=== PATIENT | female | born 1935 | race Caucasian/White ===

== ENCOUNTER 2018-05-03 10:54 | Observation (INO) ==
[2018-05-03 13:44] LABS: Baso # (Auto) 0.1 th/mm3 (0.0-0.2); Baso % (Auto) 0.8 % (0.0-2.0); Eos % (Auto) 0.5 % (0.0-4.0); Hemoglobin 12.9 gm/dL (11.6-15.3); Lymph # (Auto) 1.6 th/mm3 (1.0-4.8); Lymph % (Auto) 19.2 % (9.0-44.0); Mean Corpuscular HGB Conc 33.1 % (32.0-36.0); Mean Corpuscular Hemoglobin 29.3 pg (27.0-34.0); Mean Corpuscular Volume 88.3 fL (80.0-100.0); Mean Platelet Volume 8.7 fL (7.0-11.0); Mono # (Auto) 0.8 th/mm3 (0.0-0.9); Mono % (Auto) 9.7 % (0.0-8.0); Neut # (Auto) 5.8 th/mm3 (1.8-7.7); Neut % (Auto) 69.8 % (16.0-70.0); Platelet Count 202 th/mm3 (150-450); Red Blood Count 4.41 mil/mm3 (4.00-5.30); White Blood Count 8.3 th/mm3 (4.0-11.0)
[2018-05-03 13:49] LABS: Bilirubin,Urine Negative (Negative); Clarity,Urine Clear (Clear); Color,Urine Yellow (Yellw/Straw); Glucose,Urine (UA) Negative (Negative); Leukocyte Esterase,Urine Negative (Negative); Nitrite,Urine Negative (Negative); Urobilinogen,Urine 0.2 mg/dL (Less than 2)
--- NOTE | 2018-05-03 13:49 | ED ---
HPI General Chief complaint: Back Pain/Injury Stated complaint: Back / R Shoulder Pain xFriday PM Time Seen by Provider: 05/03/18 13:26 History of Present Illness HPI narrative: This is a 83-year-old female with history of hyperthyroidism, hyperlipidemia, presents today with complain of intermittent pain in her back between her shoulder blades. Patient also reports intermittent discomfort in her right upper abdominal area. She states it is worse with food. She reports its accompanied by frequent belching and passing gas. She denies any nausea or vomiting. She denies any diarrhea. She does still have her gallbladder. She denies any left-sided chest pain, chest pressure. She denies any dyspnea on exertion. There are no other complaints at time of examination. Related Data Home Medications Medication Instructions Recorded Confirmed calcium carbonate [Calcium 600] 1,200 mg PO DAILY 05/03/18 05/03/18 levothyroxine [Levoxyl] 100 mcg PO DAILY 05/03/18 05/03/18 lutein 20 mg PO DAILY 05/03/18 05/03/18 lysine [L-Lysine] 500 mg PO DAILY 05/03/18 05/03/18 pravastatin 20 mg PO DAILY 05/03/18 05/03/18 Allergies Allergy/AdvReac Type Severity Reaction Status Date / Time Sulfa (Sulfonamide Allergy Severe Anaphylaxis Verified 05/03/18 11:16 Antibiotics) Influenza Virus Vaccines AdvReac Severe Fever Verified 05/03/18 13:08 lactose intolerant Allergy Gastrointestinal Uncoded 05/03/18 13:18 Upset Review of Systems Constitutional Denies chills and Denies fever(s) Eyes Reports system reviewed and no additional complaints, except [facility] ENT Reports system reviewed and no additional complaints, except as [facility] Cardiovascular Denies chest pain, Denies syncope, Denies edema and Reports other (Pain between her shoulder blades.) Respiratory Denies chest congestion, Denies cough and Denies dyspnea Gastrointestinal Reports abdominal pain (Right upper), Reports belching, Denies nausea and Denies vomiting Genitourinary Reports system reviewed and no additional complaints, except as [facility] Musculoskeletal Reports system reviewed and no additional complaints, except as [facility] Neurologic Reports system reviewed and no additional complaints, except as [facility] Medical History Medical History History of hysterectomy (Acute) Surgical History Surgical History H/O varicose vein stripping (Acute) History of cataract surgery (Acute) History of knee surgery (Acute) Social History Social History Substance History: No History of Abuse Smoking Status: Former smoker How Often Do You Have a Drink Containing Alcohol: Monthly or less Recent Travel in [facility] within the Last 8 Weeks: No Recent Out of Country Travel within the Last 8 Weeks: No Immunization History Tetanus Immunization: <5 Years Hx Influenza Vaccine This Season: Yes Exam Narrative Exam Narrative: GENERAL: Well developed well-nourished female in no acute respiratory distress. SKIN: Focused skin assessment warm/dry. HEAD: Atraumatic. Normocephalic. EYES: No scleral icterus. No injection or drainage. ENT: No nasal bleeding or discharge. Mucous membranes pink and moist. NECK: Trachea midline. Supple. CARDIOVASCULAR: Regular rate and rhythm. No murmur appreciated. RESPIRATORY: No accessory muscle use. Clear to auscultation. Breath sounds equal bilaterally. GASTROINTESTINAL: Abdomen soft, nondistended. There is no tenderness to palpation. There is no Craig sign. MUSCULOSKELETAL: No obvious deformities. No clubbing. No cyanosis. No edema. NEUROLOGICAL: Awake and alert. No obvious cranial nerve deficits. Motor grossly within normal limits. Normal speech. Course Initial Documented Vital Signs Temperature 98.6 F 05/03/18 11:07 Pulse Rate 101 H 05/03/18 11:07 Respiratory Rate 16 05/03/18 11:07 Blood Pressure 156/76 H 05/03/18 11:07 Pulse Oximetry 98 05/03/18 11:07 Last Documented Vital Signs Temperature 98.6 F 05/03/18 11:07 Pulse Rate 84 05/03/18 16:33 Respiratory Rate 18 05/03/18 16:33 Blood Pressure 144/73 H 05/03/18 16:33 Pulse Oximetry 95 05/03/18 16:33 Medical Decision Making [facility] Narrative Medical decision making narrative: This 83-year-old female presents with intermittent right upper quadrant abdominal pain with pain rating down behind her shoulder blades. She was sent here at the request of her primary doctor to rule out cardiac issues. Patient's EKG and cardiac enzymes are within normal limits. Patient has pain consistent with cholecystitis or gallbladder pain. Gallbladder enzymes are within normal limits. CT scan was ordered to rule out gallbladder etiology. There is no evidence of acute cholecystitis or pericholecystic fluid. The rest of her abdominal scan is negative. Given her history and the presentation she will be admitted under observation. She will get a HIDA scan in the morning with a GI consult. Case was discussed with Dr. Harpal Broderick who is agreeable. Medical Screen Exam Complete: Yes Emergency Medical Condition: Yes Differential Diagnosis Differential Diagnosis: Peptic ulcer disease versus cholelithiasis versus atypical chest pain Lab Data Result diagrams: 05/03/18 13:35 05/03/18 13:35 Lab Results 05/03/18 05/03/18 05/03/18 Range/Units 13:35 13:35 13:35 CBC w Diff Auto diff final WBC 8.3 (4.0-11.0) th/mm3 RBC 4.41 (4.00-5.30) mil/mm3 Hgb 12.9 (11.6-15.3) gm/dL Hct 39.0 (35.0-46.0) % MCV 88.3 (80.0-100.0) fL MCH 29.3 (27.0-34.0) pg MCHC 33.1 (32.0-36.0) % RDW 12.0 (11.6-17.2) % Plt Count 202 (150-450) th/mm3 MPV 8.7 (7.0-11.0) fL Neut % (Auto) 69.8 (16.0-70.0) % Lymph % (Auto) 19.2 (9.0-44.0) % [place] % (Auto) 9.7 H (0.0-8.0) % Eos % (Auto) 0.5 (0.0-4.0) % Baso % (Auto) 0.8 (0.0-2.0) % Neut # (Auto) 5.8 (1.8-7.7) th/mm3 Lymph # (Auto) 1.6 (1.0-4.8) th/mm3 [place] # (Auto) 0.8 (0.0-0.9) th/mm3 Eos # (Auto) 0.0 (0.0-0.4) th/mm3 Baso # (Auto) 0.1 (0.0-0.2) th/mm3 WBC Differential . Differential Comment . Sodium 143 (136-145) meq/L Potassium 3.9 (3.5-5.1) meq/L Chloride 105 (98-107) meq/L Carbon Dioxide 28.3 (21.0-32.0) meq/L Anion Gap 10 (5-15) meq/L BUN 14 (7-18) mg/dL Creatinine 0.79 (0.50-1.00) mg/dL Estimated GFR 70 L (>89) mL/min Random Glucose 107 H (74-106) mg/dL Calcium 9.0 (8.5-10.1) mg/dL Total Bilirubin 0.4 (0.2-1.0) mg/dL AST 16 (15-37) U/L ALT 19 (10-53) U/L Alkaline Phosphatase 97 (45-117) U/L Total Creatine Kinase 53 (26-192) U/L Troponin I Less than 0.02 L (0.02-0.05) ng/mL Total Protein 7.8 (6.4-8.2) g/dL Albumin 3.9 (3.4-5.0) g/dL Lipase 106 (73-393) U/L Ur Collection Type Clean catch Urine Color Yellow (Yellw/Straw) Urine Clarity Clear (Clear) Urine pH 6.0 (5.0-8.5) Ur Specific [place] 1.010 (1.002-1.035) Urine Protein Negative (Neg-Trace) mg/dL Urine Glucose (UA) Negative (Negative) mg/dL Urine Ketones 15 H (Negative) mg/dL Urine Occult Blood Small H (Negative) Urine Nitrate Negative (Negative) Urine Bilirubin Negative (Negative) Urine Urobilinogen 0.2 (Less than 2) mg/dL Ur Leukocyte Esterase Negative (Negative) Urine RBC 0-3 (0-3) /hpf Ur Squamous Epith Cells 0-5 (0-5) /hpf Urine Mucus Moderate H (Occasional) /lpf Micro UA Comment Culture not ind Ur Microscopic Review Microscopic reviewed Urine Culture Comments Culture not ind Urine Collection Time 1335 hours Imaging Data Radiologist's impression: Chest X-Ray 05/03/18 13:26 CONCLUSION: No acute cardiopulmonary disease. Abdomen/Pelvis CT 05/03/18 14:15 CONCLUSION: 1. No acute abnormality to explain the patient's pain. Discharge Plan Discharge Disposition Patient Disposition: 30 Still Patient Discharge Details Diagnosis: Abdominal pain, Pain in scapula, Dyslipidemia Physicians Team ED Provider: Reuben Arellano Primary Care Provider: Darshan Conner Rxs /Orders / Referrals /Forms Prescriptions: No Action levothyroxine [Levoxyl] 100 mcg Tablet 100 mcg PO DAILY RF: 0 calcium carbonate [Calcium 600] 600 mg calcium (1,500 mg) Tablet 1,200 mg PO DAILY RF: 0 pravastatin 20 mg Tablet 20 mg PO DAILY RF: 0 lysine [L-Lysine] 500 mg Tablet 500 mg PO DAILY RF: 0 lutein 20 mg Tablet 20 mg PO DAILY RF: 0 Discharge Interventions Interventions: Vital Signs Last Done: 05/03/18 16:33 Status ED Status: With Doctor
[2018-05-03 13:56] LABS: Chloride 105 meq/L (98-107); Potassium 3.9 meq/L (3.5-5.1); Sodium 143 meq/L (136-145)
[2018-05-03 13:57] LABS: Collection Time,Urine 1335 hours
[2018-05-03 13:58] LABS: Mucus,Urine Moderate /lpf (Occasional); RBC,Urine 0-3 /hpf (0-3); Squamous Epithelial Cell,Urine 0-5 /hpf (0-5)
[2018-05-03 14:00] LABS: Albumin 3.9 g/dL (3.4-5.0); Anion Gap 10 meq/L (5-15); Blood Urea Nitrogen 14 mg/dL (7-18); Carbon Dioxide 28.3 meq/L (21.0-32.0); Glucose,Random 107 mg/dL (74-106); Lipase 106 U/L (73-393)
[2018-05-03 14:03] LABS: Alanine Aminotransferase 19 U/L (10-53); Aspartate Aminotransferase 16 U/L (15-37); Glomerular Filtration Rate 70 mL/min (>89)
[2018-05-03 14:05] LABS: Total Protein 7.8 g/dL (6.4-8.2)
[2018-05-03 14:06] LABS: Alkaline Phosphatase 97 U/L (45-117)
[2018-05-03 14:10] LABS: Creatine Kinase 53 U/L (26-192)
--- NOTE | 2018-05-03 14:20 | XR ---
EXAM DATE: 05/03/2018 1:26 PM EDT AGE/SEX: 83 years / Female INDICATIONS: Chest Pain CLINICAL DATA: This is the patient's initial encounter. Patient reports that signs and symptoms have been present for 1 day and indicates a pain score of 0/10. MEDICAL/SURGICAL HISTORY: . Hypotension None. COMPARISON: [facility], XR CHEST PA AND LAT, 08/25/2016. . FINDINGS: A single AP view of the chest demonstrates hyperinflation of lungs. No infiltrate or effusion. Elevat ion left hemidiaphragm. Chronic interstitial changes noted. Most pronounced within the apices. These are stable. A degenerative and scoliotic spine. Heart is normal in size. CONCLUSION: No acute cardiopulmonary disease. Electronically signed by: John Corbett MD 05/03/2018 2:18 PM EDT
[2018-05-03] MEDS ORDERED: Acetaminophen 325 MG Tablet PO ONE (14:21)
[2018-05-03] MEDS ORDERED: Diatrizoate Meglum/Diatrizoate Sod Liq 9 ML UDC ONE (14:29)
[2018-05-03 14:39] VITALS: O2SAT 95
--- NOTE | 2018-05-03 16:11 | CT ---
EXAM DATE: 05/03/2018 2:21 PM EDT AGE/SEX: 83 years / Female INDICATIONS: Right upper quadrant and back pain radiating to shoulder with improvement after belchi ng, but then returns. CLINICAL DATA: This is the patient's initial encounter. Patient reports that signs and symptoms have been present for 2 days and indicates a pain score of 4/10. MEDICAL/SURGICAL HISTORY: None. Hysterectomy. ORAL CONTRAST: Prescribed oral contrast ingested. RADIATION DOSE: 14.21 CTDI (mGy) COMPARISON: No prior exams available for comparison. TECHNIQUE: Multiple contiguous axial images were obtained through the abdomen and pelvis following b olus infusion of 95 ml Omnipaque 350 (iohexol) nonionic water-soluble contrast as a single exam dos e. Prescribed oral contrast ingested. Using automated exposure control and adjustment of the mA and/ or kV according to patient size, radiation dose was kept as low as reasonably achievable to obtain op timal diagnostic quality images. DICOM format image data is available electronically for review and comparison. FINDINGS: Lower Lungs: The visualized lower lungs are clear. Liver: The liver has a homogeneous density without space-occupying lesion. There is no dilation of th e biliary tree. Gallbladder is unremarkable. Spleen: Homogeneous density without enlargement. Pancreas: Unremarkable without mass or calcification. Kidneys: Normal in size and shape. No evidence of mass or hydronephrosis. Adrenal Glands: Unremarkable. Aorta: The aorta and proximal iliac vessels are grossly unremarkable without aneurysmal dilation. Bowel/Mesentery: The bowel loops are grossly unremarkable. The cecum and sigmoid colon have a normal configuration. Appendix is normal by CT criteria. Abdominal Wall: Intact. Retroperitoneum: No evidence of adenopathy in the retrocrural, para-aortic, or deep pelvic regions. Bladder: Contours are smooth. Reproductive Organs: No abnormal masses or calcifications seen. Inguinal: The inguinal region is unremarkable without evidence of adenopathy. Bony Structures: Unremarkable. CONCLUSION: 1. No acute abnormality to explain the patient's pain. Electronically signed by: John Corbett MD 05/03/2018 4:10 PM EDT
[2018-05-03] MEDS ORDERED: Morphine Inj 4 MG/ML Vial IV.PUSH PRN ×2 (17:11)
[2018-05-03] MEDS: Sod Chloride 0.9% Inj 1,000 ML IV.CONT SCH (17:35)
[2018-05-03 19:39] LABS: Creatine Kinase 50 U/L (26-192)
[2018-05-04 03:24] LABS: Chloride 109 meq/L (98-107); Sodium 143 meq/L (136-145)
[2018-05-04 03:27] LABS: Calcium 8.7 mg/dL (8.5-10.1)
[2018-05-04] MEDS: Sod Chloride 0.9% Inj 1,000 ML IV.CONT SCH (03:27)
[2018-05-04 03:42] LABS: Alanine Aminotransferase 14 U/L (10-53); Albumin 3.2 g/dL (3.4-5.0); Alkaline Phosphatase 85 U/L (45-117); Anion Gap 8 meq/L (5-15); Aspartate Aminotransferase 10 U/L (15-37); Blood Urea Nitrogen 9 mg/dL (7-18); Carbon Dioxide 25.7 meq/L (21.0-32.0); Glomerular Filtration Rate 83 mL/min (>89); Glucose,Random 88 mg/dL (74-106); Total Protein 6.7 g/dL (6.4-8.2)
[2018-05-04 03:43] LABS: Creatine Kinase 49 U/L (26-192)
[2018-05-04 07:16] LABS: Baso % (Auto) 0.9 % (0.0-2.0); Eos # (Auto) 0.1 th/mm3 (0.0-0.4); Eos % (Auto) 2.5 % (0.0-4.0); Hemoglobin 11.1 gm/dL (11.6-15.3); Lymph # (Auto) 2.1 th/mm3 (1.0-4.8); Lymph % (Auto) 39.8 % (9.0-44.0); Mean Corpuscular HGB Conc 32.5 % (32.0-36.0); Mean Corpuscular Hemoglobin 29.1 pg (27.0-34.0); Mean Corpuscular Volume 89.6 fL (80.0-100.0); Mean Platelet Volume 9.3 fL (7.0-11.0); Mono # (Auto) 0.7 th/mm3 (0.0-0.9); Neut # (Auto) 2.3 th/mm3 (1.8-7.7); Neut % (Auto) 42.8 % (16.0-70.0); Platelet Count 168 th/mm3 (150-450); Red Blood Count 3.79 mil/mm3 (4.00-5.30); Red Cell Distribution Width 12.2 % (11.6-17.2); White Blood Count 5.2 th/mm3 (4.0-11.0)
--- NOTE | 2018-05-04 07:58 | P.HP ---
History of Present Illness Primary Care Physician: Darshan Conner MD Chief Complaint: neck and shoulder pain History of Present Illness: This is a pleasant 83-year-old female patient with a known medical history of hypothyroidism hyperlipidemia who presented to the ED with complaints of intermittent neck and back pain especially between her shoulder blades. Patient states that on Thursday night before going to bed she developed a neck pain that radiated to her right rib cage area that was dull and muscle aching in nature. She states that she took an Advil and use the heating pad which did relieve the pain although the pain was intermittent throughout the weekend. Patient states that she denies any abdominal pain although the pain did worsen when she ate. The pain is characterized as dull in nature, lasts a couple hours is relieved with Advil. It should be noted that patient also took her temperature on Thursday night and was reportedly 100.3. She denies any changes in her bowel movements, denies any blood or black stools. She denies any diarrhea. Patient follows closely with her primary care doctor whom she called for said complaints and was advised to come to the ER. She last saw her PCP 3 weeks ago with no changes to her medicines. Patient does admit to undergoing a colonoscopy roughly 8 years ago which was reportedly negative. Has never underwent an EGD. - Diagnosis (1) Chronic neck and back pain Review of Systems All other systems reviewed negative except as stated in HPI PMFSH - History History Provided By: Patient - Medical History Medical History: Medical History (Last Reviewed 05/04/18 @ 08:37 by Shabana Manrique) History of hysterectomy - Surgical History Surgical History: Surgical History (Last Reviewed 05/04/18 @ 08:37 by Shabana Manrique) H/O varicose vein stripping History of cataract surgery History of knee surgery - Family History Family History: Family History (Last Updated 05/04/18 @ 08:37 by Shabana Manrique) Other No pertinent family history - Tobacco History Second Hand Smoke Exposure: No Smoking Status: Never smoker - Alcohol History How Often Do You Have a Drink Containing Alcohol: Never - Substance Use History Substance History: No History of Abuse - Travel History Recent Travel in the [place] Within the Last 8 Weeks: No Recent Travel Out of the Country Within the Last 8 Weeks: No - Immunization History Tetanus Immunization: <5 Years Hx Influenza Vaccine This Season: Yes Medications and Allergies Active Medications: Active Medications Al Hydroxide/Mg Hydroxide (Milk Of Callie Baum) 30 ml PO Q12H PRN PRN Reason: Mild Constipation Sodium Chloride (Ns Inj) 1,000 mls @ 100 mls/hr IV.CONT .Q10H LORY Last Admin: 05/04/18 03:27 Dose: 100 mls/hr Sodium Chloride (Ns Flush) 2 ml IV.FLUSH PRN PRN PRN Reason: FLUSH AFTER USING IV ACCESS Tramadol HCl (Ultram) 50 mg PO Q6H PRN PRN Reason: Pain 3 to 10 Last Admin: 05/03/18 20:56 Dose: 50 mg Allergies Allergy/AdvReac Type Severity Reaction Status Date / Time Sulfa (Sulfonamide Allergy Severe Anaphylaxis Verified 05/03/18 11:16 Antibiotics) Influenza Virus Vaccines AdvReac Severe Fever Verified 05/03/18 13:08 lactose intolerant Allergy Gastrointestinal Uncoded 05/03/18 13:18 Upset Home Medications Medication Instructions Recorded Confirmed Type calcium carbonate [Calcium 600] 1,200 mg PO DAILY 05/03/18 05/03/18 History levothyroxine [Levoxyl] 100 mcg PO DAILY 05/03/18 05/03/18 History lutein 20 mg PO DAILY 05/03/18 05/03/18 History lysine [L-Lysine] 500 mg PO DAILY 05/03/18 05/03/18 History pravastatin 20 mg PO DAILY 05/03/18 05/03/18 History Exam Vital signs: Vital Signs 05/03/18 11:07 05/03/18 13:11 05/03/18 14:38 Temperature 98.6 F Pulse Rate 101 H 103 H 93 H Respiratory Rate 16 16 18 Blood Pressure 156/76 H 177/88 H 126/78 Pulse Oximetry 98 98 95 05/03/18 16:33 05/03/18 20:00 05/04/18 00:00 Temperature 97.6 F 97.4 F L Pulse Rate 84 81 70 Respiratory Rate 18 18 18 Blood Pressure 144/73 H 132/61 131/64 Pulse Oximetry 95 95 95 Intake & Output 05/03/18 05/04/18 05/04/18 18:59 06:59 18:59 Intake Total 100 / 100 1480 / 1480 Balance 100 / 100 1480 / 1480 Weight 81.6 kg 81.6 kg Intake: IV 100 / 100 1000 / 1000 NS Inj 1,000 ML @ 100 mls/hr IV 100 / 100 1000 / 1000 .CONT .Q10H LORY Rx#:[id number] Oral 480 / 480 Other: # Voids 1 Weight On Admission 81.6 kg Narrative: GENERAL: Well-developed, well-nourished elderly female patient in [facility]. SKIN: Warm and dry. No rash. HEAD: Normocephalic. Atraumatic. EYES: Pupils equal and round. No scleral icterus. No injection or drainage. ENT: No nasal bleeding or discharge. Mucous membranes pink and moist. NECK: Supple. Trachea midline. No pain to palpation. CARDIOVASCULAR: Regular rate and rhythm. S1, S2 noted. No murmur appreciated. RESPIRATORY: No accessory muscle use. Clear to auscultation. Breath sounds equal bilaterally. GASTROINTESTINAL: Abdomen soft, non-tender, nondistended. Normoactive bowel sounds x4. MUSCULOSKELETAL: No obvious deformities. Extremities without clubbing, cyanosis , or edema. NEUROLOGICAL: Awake and alert. No obvious cranial nerve deficits. Motor grossly within normal limits. 5/5 muscle strength in bilateral upper and lower extremities. Normal speech. PSYCHIATRIC: Appropriate mood and affect; insight and judgment normal. Results - Labs CBC & Chem 7: 05/04/18 05:12 05/04/18 03:00 Labs: Laboratory Results - last 24 hr 05/03/18 05/03/18 05/03/18 13:35 13:35 13:35 CBC w Diff Auto diff final WBC 8.3 RBC 4.41 Hgb 12.9 Hct 39.0 MCV 88.3 MCH 29.3 MCHC 33.1 RDW 12.0 Plt Count 202 MPV 8.7 Neut % (Auto) 69.8 Lymph % (Auto) 19.2 [place] % (Auto) 9.7 H Eos % (Auto) 0.5 Baso % (Auto) 0.8 Neut # (Auto) 5.8 Lymph # (Auto) 1.6 [place] # (Auto) 0.8 Eos # (Auto) 0.0 Baso # (Auto) 0.1 WBC Differential . Differential Comment . Sodium 143 Potassium 3.9 Chloride 105 Carbon Dioxide 28.3 Anion Gap 10 BUN 14 Creatinine 0.79 Estimated GFR 70 L Random Glucose 107 H Calcium 9.0 Total Bilirubin 0.4 AST 16 ALT 19 Alkaline Phosphatase 97 Total Creatine Kinase 53 Troponin I Less than 0.02 L Total Protein 7.8 Albumin 3.9 Lipase 106 Ur Collection Type Clean catch Urine Color Yellow Urine Clarity Clear Urine pH 6.0 Ur Specific [place] 1.010 Urine Protein Negative Urine Glucose (UA) Negative Urine Ketones 15 H Urine Occult Blood Small H Urine Nitrate Negative Urine Bilirubin Negative Urine Urobilinogen 0.2 Ur Leukocyte Esterase Negative Urine RBC 0-3 Ur Squamous Epith Cells 0-5 Urine Mucus Moderate H Micro UA Comment Culture not ind Ur Microscopic Review Microscopic reviewed Urine Culture Comments Culture not ind Urine Collection Time 1335 05/03/18 05/04/18 05/04/18 19:10 03:00 05:12 CBC w Diff Auto diff final WBC 5.2 RBC 3.79 L Hgb 11.1 L Hct 34.0 L MCV 89.6 MCH 29.1 MCHC 32.5 RDW 12.2 Plt Count 168 MPV 9.3 Neut % (Auto) 42.8 Lymph % (Auto) 39.8 [place] % (Auto) 14.0 H Eos % (Auto) 2.5 Baso % (Auto) 0.9 Neut # (Auto) 2.3 Lymph # (Auto) 2.1 [place] # (Auto) 0.7 Eos # (Auto) 0.1 Baso # (Auto) 0.0 WBC Differential . Differential Comment . Sodium 143 Potassium 4.0 Chloride 109 H Carbon Dioxide 25.7 Anion Gap 8 BUN 9 Creatinine 0.68 Estimated GFR 83 L Random Glucose 88 Calcium 8.7 Total Bilirubin 0.5 AST 10 L ALT 14 Alkaline Phosphatase 85 Total Creatine Kinase 50 49 Troponin I Less than 0.02 L Less than 0.02 L Total Protein 6.7 D Albumin 3.2 L D Lipase Ur Collection Type Urine Color Urine Clarity Urine pH Ur Specific [place] Urine Protein Urine Glucose (UA) Urine Ketones Urine Occult Blood Urine Nitrate Urine Bilirubin Urine Urobilinogen Ur Leukocyte Esterase Urine RBC Ur Squamous Epith Cells Urine Mucus Micro UA Comment Ur Microscopic Review Urine Culture Comments Urine Collection Time - Imaging Impressions Chest X-Ray 05/03/18 13:26 CONCLUSION: No acute cardiopulmonary disease. Abdomen/Pelvis CT 05/03/18 14:15 CONCLUSION: 1. No acute abnormality to explain the patient's pain. Caprini VTE Risk Assessment Caprini VTE Risk Assessment: Moderate/High Risk (score >= 2) Caprini Risk Assessment Model: Point Value = 1 Point Value = 2 Point Value = 3 Point Value = 5 Age 41-60 Minor surgery BMI > 25 kg/m2 Swollen legs Varicose veins or History of unexplained or recurrent spontaneous Oral contraceptives or hormone replacement Sepsis (< 1 month) Serious lung disease, including pneumonia (< 1 month) Abnormal pulmonary function Acute myocardial infarction Congestive heart failure (< 1 month) History of inflammatory bowel disease Medical patient at bed rest Age 61-74 Arthroscopic surgery Major open surgery (> 45 min) Laparoscopic surgery (> 45 min) Malignancy Confined to bed (> 72 hours) Immobilizing plaster cast Central venous access Age >= 75 History of VTE Family history of VTE Factor V Leiden Prothrombin 51845C Lupus anticoagulant Anticardiolipin antibodies Elevated serum homocysteine Heparin-induced thrombocytopenia Other congenital or acquired thrombophilia Stroke (< 1 month) Elective arthroplasty Hip, pelvis, or leg fracture Acute spinal cord injury (< 1 month) Prophylaxis Regimen: Total Risk Factor Score Risk Level Prophylaxis Regimen 0-1 Low Early ambulation 2 Moderate Order ONE of the following: *Sequential Compression Device (SCD) *Heparin 5000 units SQ BID 3-4 Higher Order ONE of the following medications: *Heparin 5000 units SQ TID *Enoxaparin/Lovenox 40 mg SQ daily (WT < 150 kg, CrCl > 30 mL/min) *Enoxaparin/Lovenox 30 mg SQ daily (WT < 150 kg, CrCl > 10-29 mL/min) *Enoxaparin/Lovenox 30 mg SQ BID (WT < 150 kg, CrCl > 30 mL/min) AND/OR *Sequential Compression Device (SCD) 5 or more Highest Order ONE of the following medications: *Heparin 5000 units SQ TID (Preferred with Epidurals) *Enoxaparin/Lovenox 40 mg SQ daily (WT < 150 kg, CrCl > 30 mL/min) *Enoxaparin/Lovenox 30 mg SQ daily (WT < 150 kg, CrCl > 10-29 mL/min) *Enoxaparin/Lovenox 30 mg SQ BID (WT < 150 kg, CrCl > 30 mL/min) AND *Sequential Compression Device (SCD) Assessment and Plan - Assessment (1) Chronic neck and back pain Code(s): M54.2 - Cervicalgia; M54.9 - Dorsalgia, unspecified; G89.29 - Other chronic pain Status: Acute - Plan This is an 83-year-old female patient with Neck and back discomfort -Patient presents with 3-day history of neck and back pain especially between shoulder blades. -Ultram as needed for pain per pain scale. -Abdominal CT has been reviewed, no significant findings to explain the pain. A HIDA scan has been ordered and pending today. Will follow. -Keep n.p.o. for now. Ensure hydration, continue IV fluids. -Antiemetics as needed. -Supportive care. Hypothyroidism, chronic: Will continue home medications. GI Prophylaxis: Protonix. DVT prophylaxis: SCDs. Heparin.
[2018-05-04] MEDS ORDERED: Aluminum/Magnesium/Simethacone Susp 30 ML UDC PO PRN (08:44)
[2018-05-04] MEDS ORDERED: Heparin - SQ 10,000 UNITS/ML Vial SQ SCH (09:00)
[2018-05-04] MEDS ORDERED: Pantoprazole Inj 40 MG Vial IV.PUSH SCH (09:00)
[2018-05-04] MEDS ORDERED: Sincalide Inj 5 MCG Vial IV.PUSH ONE (13:32)
--- NOTE | 2018-05-04 14:37 | NM ---
EXAM DATE: 05/04/2018 11:36 AM EDT AGE/SEX: 83 years / Female INDICATIONS: Abdominal pain with nausea and vomiting. Obstruction. CLINICAL DATA: This is the patient's initial encounter. Patient reports that signs and symptoms have been present for 1 day and indicates a pain score of 6/10. MEDICAL/SURGICAL HISTORY: Hyperthyroidism. Hysterectomy. COMPARISON: [facility], CT ABDOMEN & PELVIS W CONTRAST, 05/03/2018. . No external comparison. DOSE: 4.1 mCi Tc-99m mebrofenin i.v. Medication: 1.64 mcg Cholecystokinin IV No symptomatic response Cholecystokinin was administered by slow infusion over 8 minutes beginning at 75 min. min utes. TECHNIQUE: Following the intravenous administration of radiotracer, dynamic sequential images were pe rformed with continuous acquisition. Time-activity curves were generated. FINDINGS: Hepatic Kinetics: There is prompt uptake of radiotracer in the liver. No focal defects are seen. Ther e is normal rate of washout from the hepatic parenchyma. Biliary Clearance: Activity is first seen in the extrahepatic biliary system at 25 minutes. There is normal excretion into the small bowel. Gallbladder: Activity is first seen in the gallbladder at 35 minutes. Post-CCK: After CCK administration, there is emptying of the gallbladder with a 0% ejection fraction. Common bile duct kinetics are normal and there is no evidence of biliary obstruction. No symptomati c response after cholecystokinin infusion. Biliary-Enteric Reflux: None observed. CONCLUSION: 1. No emptying of the gallbladder after CCK administration suggestive of possible chronic cholecysti tis. Clinical correlation is recommended. 2. No cystic duct or distal common bile duct obstruction. Electronically signed by: Heath Mcmanus MD 05/04/2018 2:36 PM EDT
[2018-05-04 16:32] VITALS: BP 141/67; PULSE 76; RESP 20; TEMP 98.5
--- NOTE | 2018-05-04 17:24 | ECG ---
Date Performed: 05/03/2018 Time Performed: 11:15:05 PTAGE: 83 years EKG: Sinus rhythm INCOMPLETE RIGHT BUNDLE BRANCH BLOCK BORDERLINE ECG PREVIOUS TRACING : 02/13/2010 06.59 Since the previous tracing, no significant change noted DOCTOR: Ric Astorga Interpretating Date/Time 05/04/2018 17:22:26
== END 2018-05-04 17:53 | disposition home or self-care (01) ==
LOC: PHED 10:54 → PHEDA 10:54 → PH3 18:21
PROVIDERS: ADMIT Hospitalist; ATTEND Hospitalist
DX: Z90.710 Acquired absence of both cervix and uterus; Z88.2 Allergy status to sulfonamides; M25.511 Pain in right shoulder; M54.9 Dorsalgia, unspecified; G89.29 Other chronic pain; Z87.891 Personal history of nicotine dependence; E03.9 Hypothyroidism, unspecified; E78.5 Hyperlipidemia, unspecified; M54.2 Cervicalgia